=== PATIENT | male | born 1995 | race Two or more races ===

== ENCOUNTER 2017-04-12 13:55 | Emergency (ER) | payer MEDICAID ==
[~2017-04-12] VITALS: Ht 190.5 cm; Wt 104.3 kg
[2017-04-12 13:55] VITALS: BP_SYST 162
--- NOTE | 2017-04-12 15:52 | NUR ---
CALLED PT, NO ANSWER
--- NOTE | 2017-04-12 15:53 | NUR ---
PT PLACED IN [facility]
--- NOTE | 2017-04-12 16:00 | NUR ---
Pt complains of cough, sore throat, fever, n/v and runny nose for the past week. Pt states fever and vomiting has stopped in the last 3 days but is still nauseous. No other injuries/complaints per pt or noted.
--- NOTE | 2017-04-12 16:12 | NUR ---
ER at bedside examining patient.
--- NOTE | 2017-04-12 16:45 | NUR ---
Patient given written and verbal discharge instructions and verbalizes understanding. ER MD discussed with patient the results and treatment provided. Patient in stable condition. ID arm band removed. Rx of Promethazine and Ibuprofen given. Patient educated on pain management and to follow up with PMD 2-3days. Pain Scale 8/10; pt and MD agreeable to discharge home. Opportunity for questions provided and answered.
[2017-04-12 16:51] VITALS: BP_SYST 120
== END 2017-04-12 16:51 | disposition home or self-care (01) ==
LOC: SED 13:55
DX: J06.9 Acute upper respiratory infection, unspecified (principal); Z90.89 Acquired absence of other organs
CPT/HCPCS: 36415; 86710; 99284

== ENCOUNTER 2017-04-19 04:21 | Emergency (ER) | payer MEDICAID ==
[~2017-04-19] VITALS: Ht 190.5 cm; Wt 104.3 kg
[2017-04-19 04:36] VITALS: BP_SYST 143
--- NOTE | 2017-04-19 04:50 | NUR ---
Pt stated that maybe he vaped too much. Pt stated vomited x 3. at home he felt dizziness. Denied pain or discomfort at the time. Pt stable. will continue to monitor
--- NOTE | 2017-04-19 04:53 | NUR ---
ER at bedside examining patient.
--- NOTE | 2017-04-19 05:04 | NUR ---
Patient given written and verbal discharge instructions and verbalizes understanding. ER MD discussed with patient the results and treatment provided. Patient in stable condition. ID arm band removed. Rx of zofran given. Patient educated on pain management and to follow up with PMD. Pain Scale 0/10. Opportunity for questions provided and answered.
== END 2017-04-19 05:04 | disposition home or self-care (01) ==
LOC: SED 04:21
DX: J18.9 Pneumonia, unspecified organism (principal); R11.2 Nausea with vomiting, unspecified
CPT/HCPCS: 99283

== ENCOUNTER 2017-06-26 17:15 | Emergency (ER) | payer MEDICAID ==
[~2017-06-26] VITALS: Ht 190.5 cm; Wt 99.8 kg
[2017-06-26 17:24] VITALS: BP_SYST 156
[2017-06-26] MEDS ORDERED: DIPH-TET-PERTUS Vaccine 0.5 ML VIAL (ADACEL) I.M. ONE (17:45)
[2017-06-26] MEDS ORDERED: HYDROcodone/ACETAMIN 5-325 MG TAB (NORCO/ VICODIN) PO ONE (17:45)
[2017-06-26] MEDS ORDERED: BACITRACIN 1 GM OINT TP ONE (17:45)
[2017-06-26] MEDS ORDERED: VANCOMYCIN HCL 1000 MG/VIAL IV ONE (18:28)
[2017-06-26] MEDS ORDERED: CEFAZOLIN 1 GM IVPB PREMIX 50 ML IV ONE (18:30)
[2017-06-26] MEDS ORDERED: DIPHENHYDRAMINE INJ 50 MG/ML VIAL IVP ONE (18:30)
[2017-06-26] MEDS ORDERED: VANCOMYCIN HCL 1,000 MG in NS 250 ML IV ONE (18:30)
[2017-06-26] MEDS ORDERED: MORPHINE 4 MG/ML INJ. SYRINGE IVP ONE (18:30)
[2017-06-26 20:57] VITALS: BP_SYST 148
== END 2017-06-26 20:57 | disposition home or self-care (01) ==
LOC: SED 17:15
DX: S62.660A Nondisplaced fracture of distal phalanx of right index finger, initial encounter for closed fracture (principal); R03.0 Elevated blood-pressure reading, without diagnosis of hypertension; Z90.89 Acquired absence of other organs; Z86.59 Personal history of other mental and behavioral disorders; W23.0XXA Caught, crushed, jammed, or pinched between moving objects, initial encounter; Y93.89 Activity, other specified; Y92.89 Other specified places as the place of occurrence of the external cause; Y99.8 Other external cause status
CPT/HCPCS: 29130; 36415; 73140; 87040; 90471; 90715; 96365; 96366; 96368; 96375; 99285; J0690; J1200; J2270; J3370; J7050